=== PATIENT | male | born 1960 | race Caucasian/White ===

== ENCOUNTER 2016-06-23 11:57 | Inpatient (IN) | payer OTHER ==
[~2016-06-23] VITALS: Ht 182.9 cm; Wt 91.3 kg
[~2016-06-23 11:57] MED LIST: CARAFATE1 GM PO; GLUCOPHAGE1000 MG PO; LOTREL 5/201 CAPSULE PO; PROTONIX40 MG PO; TUMS DUAL ACTI1 EACH PO; TYLENOL REGULA325 MG PO; ZANTAC150 MG PO
[2016-06-23 12:29] VITALS: BP 136/74
[2016-06-23 12:50] LABS: EOSINOPHIL (%) 0.9 % (0-5); HEMATOCRIT 40.3 % (38.0-50.0); IMMATURE GRANULOCYTE (%) 0.2 % (0.0-0.7); LYMPHOCYTE COUNT 1.4 K/uL (1.0-2.8); MCH 31.9 PG (29.0-34.0); MCHC 35.7 G/DL (30.0-36.0); MCV 89.2 FL (86-99); MEAN PLAT.VOLUME 10.2 uM^3 (9.0-12.4); MONOCYTE (%) 11.4 % (3-12); MONOCYTE COUNT 0.5 K/uL (0-0.8); NEUTROPHIL (%) 55.3 % (45-76); NEUTROPHIL COUNT 2.5 K/uL (1.8-6.4); PLATELET COUNT 244 K/uL (156-360); RBC DIS.WIDTH-CV 12.9 % (11.8-14.6); RBC DIS.WIDTH-SD 41.4 % (39-53); RED BLOOD COUNT 4.52 M/uL (4.00-5.50); WHITE BLOOD COUNT 4.5 K/uL (4.1-10.2)
[2016-06-23 13:03] LABS: PROTHROMBIN TIME 10.2 (9.2-11.2)
[2016-06-23 13:23] LABS: ALKALINE PHOSPHATASE 611 IU/L (3-129); ANION GAP 10 MEQ/L (2-14); CHLORIDE 101 MEQ/L (99-109); GFR ESTIMATE (CALCULATED) > 59 mL/min/; GLUCOSE 104 mg/dL (70-99); POTASSIUM 3.5 MEQ/L (3.7-5.4); SAMPLE HEMOLYSIS CHECK 0; SAMPLE ICTERIC CHECK 0; SAMPLE LIPEMIA CHECK 0; SODIUM 141 MEQ/L (136-147); UREA NITROGEN (BUN) 12 mg/dL (9-23)
[2016-06-23] MEDS ORDERED: COLACE100 MG PO (17:32)
[2016-06-23] MEDS ORDERED: NORCO 5/3251 TABLET PO (17:32)
[2016-06-23 19:12] LABS: CHLORIDE 108 mEq/L (99-109); POTASSIUM 3.4 mEq/L (3.7-5.4); SODIUM 141 mEq/L (136-147)
[2016-06-23 19:14] LABS: GLUCOSE 135 mg/dL (70-99)
[2016-06-23 19:15] LABS: ANION GAP 9 MEQ/L (2-14)
[2016-06-23 19:18] LABS: GFR ESTIMATE (CALCULATED) > 59 mL/min/
[2016-06-23 19:19] LABS: UREA NITROGEN (BUN) 14 mg/dL (9-23)
[2016-06-23 19:33] LABS: HEMATOCRIT 29.9 % (38.0-50.0); MCHC 34.8 G/DL (30.0-36.0); MCV 89.3 FL (86-99); MEAN PLAT.VOLUME 10.1 uM^3 (9.0-12.4); PLATELET COUNT 275 K/uL (156-360); RBC DIS.WIDTH-CV 12.5 % (11.8-14.6); RBC DIS.WIDTH-SD 39.5 % (39-53)
[2016-06-23 19:34] LABS: RED BLOOD COUNT 3.35 M/uL (4.00-5.50); WHITE BLOOD COUNT 10.9 K/uL (4.1-10.2)
[2016-06-23 22:09] LABS: HEMATOCRIT 20.6 % (38.0-50.0); MCH 29.5 PG (29.0-34.0); MCHC 33.5 G/DL (30.0-36.0); MEAN PLAT.VOLUME 9.8 uM^3 (9.0-12.4); PLATELET COUNT 168 K/uL (156-360); RBC DIS.WIDTH-CV 13.5 % (11.8-14.6); RBC DIS.WIDTH-SD 41.4 % (39-53); RED BLOOD COUNT 2.34 M/uL (4.00-5.50); WHITE BLOOD COUNT 9.2 K/uL (4.1-10.2)
[2016-06-23 22:15] LABS: TROP-I INTERPRETATION NEGATIVE; TROPONIN-I < 0.01 ng/mL (0.0-0.30)
[2016-06-23 22:50] LABS: HEMATOCRIT 27.6 % (38.0-50.0); MCH 29.7 PG (29.0-34.0); MCHC 34.1 G/DL (30.0-36.0); MCV 87.1 FL (86-99); MEAN PLAT.VOLUME 9.6 uM^3 (9.0-12.4); PLATELET COUNT 238 K/uL (156-360); RBC DIS.WIDTH-CV 13.7 % (11.8-14.6); RBC DIS.WIDTH-SD 42.2 % (39-53); RED BLOOD COUNT 3.17 M/uL (4.00-5.50); WHITE BLOOD COUNT 14.1 K/uL (4.1-10.2)
[2016-06-24] VITALS (28 sets, daily range): BP systolic 87–124; BP diastolic 44–68
[2016-06-24 01:35] LABS: POINT-OF-CARE METER ID UU13113803
[2016-06-24 06:10] LABS: HEMATOCRIT 28.4 % (38.0-50.0); MCH 29.8 PG (29.0-34.0); MCHC 34.2 G/DL (30.0-36.0); MCV 87.1 FL (86-99); MEAN PLAT.VOLUME 10.1 uM^3 (9.0-12.4); PLATELET COUNT 248 K/uL (156-360); RBC DIS.WIDTH-CV 14.5 % (11.8-14.6); RBC DIS.WIDTH-SD 45.9 % (39-53); RED BLOOD COUNT 3.26 M/uL (4.00-5.50); WHITE BLOOD COUNT 11.3 K/uL (4.1-10.2)
[2016-06-24 06:37] LABS: ANION GAP 8 MEQ/L (2-14); CHLORIDE 103 MEQ/L (99-109); GFR ESTIMATE (CALCULATED) > 59 mL/min/; GLUCOSE 182 mg/dL (70-99); SAMPLE HEMOLYSIS CHECK 0; SAMPLE ICTERIC CHECK 0; SAMPLE LIPEMIA CHECK 0; SODIUM 139 MEQ/L (136-147); UREA NITROGEN (BUN) 16 mg/dL (9-23)
[2016-06-24 06:38] LABS: POTASSIUM 4.9 MEQ/L (3.7-5.4)
[2016-06-24 08:33] LABS: MAGNESIUM 1.3 mg/dl (1.3-2.7)
[2016-06-25] VITALS (8 sets, daily range): BP systolic 101–128; BP diastolic 60–81
[2016-06-26] VITALS (16 sets, daily range): BP systolic 120–142; BP diastolic 57–75
[2016-06-26 06:12] LABS: EOSINOPHIL (%) 0.5 % (0-5); HEMATOCRIT 21.4 % (38.0-50.0); IMMATURE GRANULOCYTE (%) 0.3 % (0.0-0.7); LYMPHOCYTE COUNT 1.3 K/uL (1.0-2.8); MCH 30.4 PG (29.0-34.0); MCHC 34.1 G/DL (30.0-36.0); MCV 89.2 FL (86-99); MEAN PLAT.VOLUME 9.2 uM^3 (9.0-12.4); MONOCYTE (%) 7.4 % (3-12); MONOCYTE COUNT 0.6 K/uL (0-0.8); NEUTROPHIL (%) 75.4 % (45-76); PLATELET COUNT 194 K/uL (156-360); RBC DIS.WIDTH-CV 14.3 % (11.8-14.6); RBC DIS.WIDTH-SD 46.4 % (39-53)
[2016-06-26 06:27] LABS: ANION GAP 6 MEQ/L (2-14); CHLORIDE 101 MEQ/L (99-109); GFR ESTIMATE (CALCULATED) > 59 mL/min/; GLUCOSE 139 mg/dL (70-99); SAMPLE HEMOLYSIS CHECK 0; SAMPLE ICTERIC CHECK 0; SAMPLE LIPEMIA CHECK 0; SODIUM 137 MEQ/L (136-147); TOTAL BILIRUBIN 0.8 MG/DL (0.0-1.0); UREA NITROGEN (BUN) 10 mg/dL (9-23)
[2016-06-26 06:30] LABS: POTASSIUM 3.7 MEQ/L (3.7-5.4)
[2016-06-26 06:31] LABS: ALKALINE PHOSPHATASE 362 IU/L (3-129)
[2016-06-26 18:14] LABS: EOSINOPHIL (%) 1.3 % (0-5); EOSINOPHIL COUNT 0.1 K/uL (0-0.3); HEMATOCRIT 29.2 % (38.0-50.0); IMMATURE GRANULOCYTE (%) 0.4 % (0.0-0.7); LYMPHOCYTE COUNT 1.5 K/uL (1.0-2.8); MCH 30.4 PG (29.0-34.0); MCHC 34.2 G/DL (30.0-36.0); MCV 88.8 FL (86-99); MEAN PLAT.VOLUME 9.6 uM^3 (9.0-12.4); MONOCYTE (%) 8.3 % (3-12); MONOCYTE COUNT 0.6 K/uL (0-0.8); NEUTROPHIL (%) 69.2 % (45-76); NEUTROPHIL COUNT 4.8 K/uL (1.8-6.4); PLATELET COUNT 189 K/uL (156-360); RBC DIS.WIDTH-CV 14.4 % (11.8-14.6); RBC DIS.WIDTH-SD 47.2 % (39-53); RED BLOOD COUNT 3.29 M/uL (4.00-5.50)
[2016-06-27 00:08] VITALS: BP 133/74
[2016-06-27 05:03] LABS: EOSINOPHIL (%) 1.8 % (0-5); EOSINOPHIL COUNT 0.1 K/uL (0-0.3); HEMATOCRIT 30.4 % (38.0-50.0); IMMATURE GRANULOCYTE (%) 0.3 % (0.0-0.7); IMMATURE GRANULOCYTE COUNT 0.2 K/uL; LYMPHOCYTE COUNT 1.2 K/uL (1.0-2.8); MCH 30.3 PG (29.0-34.0); MCHC 34.5 G/DL (30.0-36.0); MCV 87.6 FL (86-99); MONOCYTE (%) 7.6 % (3-12); MONOCYTE COUNT 0.5 K/uL (0-0.8); NEUTROPHIL (%) 71.2 % (45-76); NEUTROPHIL COUNT 4.7 K/uL (1.8-6.4); RBC DIS.WIDTH-SD 43.3 % (39-53); RED BLOOD COUNT 3.47 M/uL (4.00-5.50); WHITE BLOOD COUNT 6.6 K/uL (4.1-10.2)
[2016-06-27 05:07] LABS: MEAN PLAT.VOLUME 9.1 uM^3 (9.0-12.4); PLATELET COUNT 251 K/uL (156-360)
[2016-06-27 05:11] LABS: CHLORIDE 101 mEq/L (99-109); POTASSIUM 3.9 mEq/L (3.7-5.4)
[2016-06-27 05:12] LABS: SODIUM 140 mEq/L (136-147)
[2016-06-27 05:13] LABS: GLUCOSE 132 mg/dL (70-99)
[2016-06-27 05:15] LABS: ANION GAP 10 MEQ/L (2-14)
[2016-06-27 05:17] LABS: GFR ESTIMATE (CALCULATED) > 59 mL/min/
[2016-06-27 05:18] LABS: UREA NITROGEN (BUN) 9 mg/dL (9-23)
[2016-06-27 08:01] VITALS: BP 172/86
[2016-06-27 16:17] VITALS: BP 137/83
[2016-06-27 17:41] VITALS: BP 169/81
[2016-06-27] MEDS ORDERED: ENDOCET 5-3251 EACH PO (19:06)
[2016-06-27] MEDS ORDERED: DOCUSATE SODIU100 MG PO (19:06)
== END 2016-06-27 20:50 | disposition home or self-care (01) | DRG 908 ==
LOC: SDC 11:57 → 3EAST 22:47 → 2SOUTH 22:47 → 4WEST 22:47 → 3EAST 06-25 14:38
PROVIDERS: Anesthesiology; Internal Medicine; Surgery; Thoracic Surgery (Cardiothoracic Vascular Surgery)
DX: I97.42 Intraoperative hemorrhage and hematoma of a circulatory system organ or structure complicating other procedure (principal); M96.841 Postprocedural hematoma of a musculoskeletal structure following other procedure; K80.20 Calculus of gallbladder without cholecystitis without obstruction; E11.9 Type 2 diabetes mellitus without complications; I95.9 Hypotension, unspecified; I10 Essential (primary) hypertension; K21.9 Gastro-esophageal reflux disease without esophagitis; E78.5 Hyperlipidemia, unspecified; M19.90 Unspecified osteoarthritis, unspecified site; D62 Acute posthemorrhagic anemia; Y83.8 Other surgical procedures as the cause of abnormal reaction of the patient, or of later complication, without mention of misadventure at the time of the procedure; Y92.234 Operating room of hospital as the place of occurrence of the external cause
CPT/HCPCS: 76705; 80048; 80048 91; 80053; 82948; 83735; 84100; 84484; 85025; 85025 91; 85027; 85610; 86850; 86900; 86901; 86920; 87641; 88304; 93005; J0330; J0461; J0690; J1100; J1170; J1885; J2250; J2370; J2405; J2710; J2765; J3010; J3475; J7050; J7120; P9016

== ENCOUNTER → 2016-07-19 | Outpatient (CLI) | payer OTHER ==
[~2016-07-19] MED LIST changes: +COLACE100 MG PO; +DOCUSATE SODIU100 MG PO; +ENDOCET 5-3251 EACH PO; +NORCO 5/3251 TABLET PO
== END | disposition home or self-care (01) ==
LOC: MRI 16:47
DX: K80.50 Calculus of bile duct without cholangitis or cholecystitis without obstruction (principal); N28.1 Cyst of kidney, acquired; Z90.49 Acquired absence of other specified parts of digestive tract
CPT/HCPCS: 74181